=== PATIENT | male | born 1965 | race Asian ===

== ENCOUNTER 2017-11-19 06:44 | Day surgery (SDC) | payer OTHER ==
[~2017-11-19] VITALS: Ht 167.6 cm; Wt 65.5 kg
[2017-11-19] MEDS ORDERED: LIDOCAINE HCL 4% 50 ML SOLUTION TP ONE (06:45)
[2017-11-19] MEDS ORDERED: LIDOCAINE HCL 2% 30 ML JELLY TP ONE (06:45)
[2017-11-19] MEDS ORDERED: BENZOCAINE 20% 50 MCG/SPRAY 57 GM TP ONE (06:45)
[2017-11-19] MEDS ORDERED: SODIUM CHLORIDE 0.9% 1,000 ML IV ONE ×2 (07:00→07:11)
[2017-11-19] MEDS ORDERED: PANT40TA25 PO (07:43)
[2017-11-19] MEDS ORDERED: CHOL20002 PO (07:43)
[2017-11-19] MEDS ORDERED: ATOR40TA28 PO (07:43)
[2017-11-19] MEDS ORDERED: ACET-48 PO (07:43)
[2017-11-19] MEDS ORDERED: MIDAZOLAM HCL 2 MG/2 ML VIAL ONE (08:13)
[2017-11-19] MEDS ORDERED: FentaNYL CITRATE-PF 100 MCG/2 ML VIAL ONE (08:13)
[2017-11-19] MEDS ORDERED: MethylPREDNISolone SOD SUCC 125 MG/2 ML VIAL IVP ONE (09:00)
[2017-11-19] MEDS ORDERED: MethylPREDNISolone SOD SUCC 125 MG/2 ML VIAL ONE (09:06)
[2017-11-19] MEDS ORDERED: OXYGEN THERAPY IH SCH (20:00)
== END 2017-11-19 10:05 | disposition home or self-care (01) ==
LOC: SURGERY 06:44
PROVIDERS: ATTEND Internal Medicine Critical Care Medicine
DX: J38.4 Edema of larynx (principal); B37.0 Candidal stomatitis; E78.00 Pure hypercholesterolemia, unspecified; F17.210 Nicotine dependence, cigarettes, uncomplicated; Z79.891 Long term (current) use of opiate analgesic; Z90.49 Acquired absence of other specified parts of digestive tract; Z98.890 Other specified postprocedural states; Z79.899 Other long term (current) drug therapy
CPT/HCPCS: 31623; 31624; 71045; 87015; 87070; 87077; 87186; 87205; 87206; 87220; 88108; 88312; J2250; J2930; J3010; J7030